=== PATIENT | male | born 1985 | race Two or more races ===

== ENCOUNTER 2024-04-24 10:23 | Emergency (ER) | payer BC ==
[~2024-04-24] VITALS: Ht 190.5 cm; Wt 99.8 kg
[2024-04-24 10:28] VITALS: BP 144/103; PULSE 75; RESP 16; TEMP 98.7; O2SAT 99
[2024-04-24 10:45] LABS: BASOPHILS % 0.8 % (0.0-2.0); EOSINOPHILS % 3.5 % (0.0-5.0); HEMATOCRIT. 43.6 % (42.0-52.0); HEMOGLOBIN. 14.8 g/dL (14.0-18.0); LYMPHOCYTES % 29.8 % (20.0-50.0); MEAN CORPUSCULAR HEMOGLOBIN 29.9 pg (28.0-32.0); MEAN CORPUSCULAR HGB CONC 33.9 g/dL (31.0-37.0); MEAN CORPUSCULAR VOLUME 88.1 fL (80.0-94.0); MEAN PLATELET VOLUME 7.4 fl (7.4-10.4); NEUTROPHILS % 58.9 % (40.0-76.0); PLATELET 396 x1000/uL (130-400); RED BLOOD CELL COUNT 4.95 mill/uL (4.7-6.1); RED CELL DISTRIBUTION WIDTH 13.6 % (11.6-14.6); WHITE BLOOD COUNT 8.4 x1000/uL (4.5-11.0)
[2024-04-24 10:53] LABS: CHLORIDE 107 mEq/L (98-107); POTASSIUM 4.3 mEq/L (3.5-5.1); SODIUM 137 mEq/L (136-145)
[2024-04-24 10:54] LABS: CARBON DIOXIDE 25 mEq/L (21-32)
[2024-04-24 10:55] LABS: CALCIUM 9.1 mg/dL (8.7-10.4)
[2024-04-24 11:00] LABS: CREATININE 0.7 mg/dL (0.6-1.3); GLUCOSE 88 mg/dL (70-105); UREA NITROGEN BLOOD 9 mg/dL (9-23)
[2024-04-24 11:06] LABS: TROPONIN I HIGH SENSITIVITY 4 ng/L (3.0-53)
== END 2024-04-24 15:59 | disposition home or self-care (01) ==
LOC: ER 10:23
DX: R55 Syncope and collapse (principal); R20.2 Paresthesia of skin; Z90.49 Acquired absence of other specified parts of digestive tract
CPT/HCPCS: 80048; 85025; 84484; 36415; 72040; 70450; 93005; 99285; Z7610